=== PATIENT | female | born 1980 | race Caucasian/White ===

== ENCOUNTER 2016-11-15 16:49 | Emergency (ER) | payer MEDICAID ==
[~2016-11-15] VITALS: Wt 68.5 kg
[~2016-11-15 16:49] MED LIST: ACET1TAB40 PO; ERYT1OIN6 BOTH EYES; SODI126M NASAL; TYLENOL
[2016-11-15] MEDS ORDERED: KETOROLAC 15 MG INJ IM STA (18:27)
[2016-11-15] MEDS ORDERED: DIAZEPAM 5 MG TAB PO ONE (18:30)
[2016-11-15 19:23] LABS: ADD UMIC YES; URINE BILIRUBIN (Dip) NEGATIVE (NEGATIVE); URINE BLOOD (Dip) TRACE (NEGATIVE); URINE COLOR LT. YELLOW (YELLOW); URINE GLUCOSE (Dip) NEGATIVE (NEGATIVE); URINE KETONES (Dip) 15 (NEGATIVE); URINE LEUKOCYTE ESTERASE (Dip) TRACE (NEGATIVE); URINE NITRITE (Dip) POSITIVE (NEGATIVE); URINE TOTAL PROTEIN (Dip) TRACE (NEGATIVE); URINE UROBILINOGEN (Dip) 0.2 E.U./dL (0.1-1.0)
[2016-11-15 19:43] LABS: BACTERIA,URINE FEW; MUCUS,URINE MODERATE
[2016-11-15 20:15] LABS: BARBITURATES Negative (NEGATIVE); BENZODIAZEPINES Negative (NEGATIVE); CANNABINOIDS Negative (NEGATIVE)
[2016-11-15 20:20] LABS: COCAINE Negative (NEGATIVE); OPIATES Negative (NEGATIVE)
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
[2016-11-15] MEDS ORDERED: NAPR-260 PO (20:30)
[2016-11-15] MEDS ORDERED: CEPH-443 PO (20:30)
[2016-11-15 20:35] VITALS: BP 122/80; PULSE 70; RESP 20; TEMP 98.2
== END 2016-11-15 20:37 | disposition home or self-care (01) ==
LOC: FTE 16:49
DX: S80.02XA Contusion of left knee, initial encounter (principal); N39.0 Urinary tract infection, site not specified; F17.210 Nicotine dependence, cigarettes, uncomplicated; Y04.8XXA Assault by other bodily force, initial encounter
CPT/HCPCS: 80307; 81001; J1885; Z7610; 81003; 96372

== ENCOUNTER 2017-09-03 09:13 | Emergency (ER) | END 2017-09-03 11:16 | disposition home or self-care (01) ==

== ENCOUNTER 2018-01-16 13:44 | Emergency (ER) | END 2018-01-16 17:26 | disposition home or self-care (01) ==

== ENCOUNTER 2018-06-03 12:59 | Emergency (ER) | END 2018-06-03 15:08 | disposition home or self-care (01) ==